=== PATIENT | female | born 1955 | race Caucasian/White ===

== ENCOUNTER 2025-03-31 10:56 | Emergency (ER) | payer MEDICARE, OTHER ==
[2025-03-31] MEDS ORDERED: Sodium Chloride 0.9% 2.5 ML Syringe FLUSH PRN (11:20)
[2025-03-31] MEDS ORDERED: Sodium Chloride 0.9% 10 ML Syringe FLUSH PRN (11:20)
== END 2025-03-31 11:53 | disposition left against medical advice (07) ==
LOC: MW.ED 10:56
DX: Z86.79 Personal history of other diseases of the circulatory system (principal); Z87.19 Personal history of other diseases of the digestive system; Z86.59 Personal history of other mental and behavioral disorders; I10 Essential (primary) hypertension; E78.00 Pure hypercholesterolemia, unspecified; Z90.710 Acquired absence of both cervix and uterus; Z88.5 Allergy status to narcotic agent; Z88.8 Allergy status to other drugs, medicaments and biological substances; Z91.048 Other nonmedicinal substance allergy status; Z79.899 Other long term (current) drug therapy
CPT/HCPCS: 93005; 93010; 99284